=== PATIENT | female | born 1970 | race Caucasian/White ===

== ENCOUNTER 2018-03-18 18:32 | Emergency (ER) | payer BC ==
[~2018-03-18] VITALS: Ht 162.6 cm; Wt 56.8 kg
[2018-03-18] MEDS ORDERED: ZOFRAN ODT4 MG PO (20:29)
[2018-03-18 21:54] VITALS: BP 107/70; PULSE 71; TEMP 97.7
== END 2018-03-18 21:59 | disposition home or self-care (01) ==
LOC: COL.ER 18:32
DX: G43.909 Migraine, unspecified, not intractable, without status migrainosus (principal); Z87.39 Personal history of other diseases of the musculoskeletal system and connective tissue
CPT/HCPCS: J0780; J1100; J1200; J1885; J2405; J7030

== ENCOUNTER → 2018-04-05 | Outpatient (CLI) | payer BC ==
[~2018-04-05] MED LIST: ZOFRAN ODT4 MG PO
== END ==
LOC: MHCPAIN 07:50
DX: G89.29 Other chronic pain (principal); M79.2 Neuralgia and neuritis, unspecified; M79.1 Myalgia; M25.572 Pain in left ankle and joints of left foot
CPT/HCPCS: G0463

== ENCOUNTER → 2018-04-20 | Outpatient (CLI) | payer BC | LOC: MHCPAIN 07:43 | DX: M25.572 Pain in left ankle and joints of left foot (principal); M25.872 Other specified joint disorders, left ankle and foot | CPT/HCPCS: J1040; Q9967 ==

== ENCOUNTER → 2018-05-18 | Outpatient (CLI) | payer BC | LOC: MHCPAIN 07:54 | DX: G89.29 Other chronic pain (principal); M79.2 Neuralgia and neuritis, unspecified; M79.1 Myalgia; M25.572 Pain in left ankle and joints of left foot | CPT/HCPCS: G0463 ==

== ENCOUNTER → 2019-09-12 | Outpatient (CLI) | payer BC | LOC: MC.RAD 08-03 13:45 | DX: Z12.31 Encounter for screening mammogram for malignant neoplasm of breast (principal) ==

== ENCOUNTER → 2022-03-10 | Outpatient (CLI) | payer BC | LOC: MC.RAD 07:10 | DX: Z12.31 Encounter for screening mammogram for malignant neoplasm of breast (principal) ==

== ENCOUNTER → 2022-03-12 | Outpatient (CLI) | payer BC | LOC: MC.RAD 12:58 | DX: Z12.31 Encounter for screening mammogram for malignant neoplasm of breast (principal); N60.12 Diffuse cystic mastopathy of left breast ==